=== PATIENT | female | born 2005 | race African-American/Black ===

== ENCOUNTER 2023-06-22 22:26 | Emergency (ER) | payer BC, SELFPAY ==
[2023-06-22 23:34] LABS: SARS-CoV-2 NAA Rapid Test Not Detected (NotDetected)
== END 2023-06-22 23:54 | disposition home or self-care (01) ==
LOC: ERS 22:26
DX: R53.83 Other fatigue (principal); R51.9 Headache, unspecified; Z20.822 Contact with and (suspected) exposure to COVID-19
CPT/HCPCS: 99283